=== PATIENT | female | born 1965 | race Two or more races ===

== ENCOUNTER 2016-06-05 20:43 | Emergency (ER) | payer MEDICAID ==
[~2016-06-05] VITALS: Ht 157.5 cm; Wt 59.0 kg
[2016-06-05 20:46] VITALS: BP 145/89
== END 2016-06-05 23:40 | disposition home or self-care (01) ==
LOC: ER 20:47
DX: S61.211A Laceration without foreign body of left index finger without damage to nail, initial encounter (principal); E07.89 Other specified disorders of thyroid; W26.9XXA Contact with unspecified sharp object(s), initial encounter; Y93.G3 Activity, cooking and baking; Y99.8 Other external cause status; Y92.89 Other specified places as the place of occurrence of the external cause
CPT/HCPCS: 29130